=== PATIENT | male | born 1985 | race Caucasian/White ===

== ENCOUNTER 2025-07-03 15:26 | Outpatient (CLI) | payer OTHER, SELFPAY ==
--- NOTE | ~2025-07-03 | XR_ITS ---
XR finger 2nd LT min 2V 07/03/2025 15:40 INDICATION: Left second finger pain PROCEDURE: 4 views left second finger COMPARISON: No prior studies for comparison. FINDINGS: Fracture, dislocation or subluxation is not identified. The soft tissues appear within normal limits. No foreign bodies are identified. IMPRESSION: 1: NO ACUTE BONE OR JOINT ABNORMALITY IDENTIFIED. Reviewed, dictated and finalized at location O. [facility] SCIENT[facility]
--- OUTSIDE RECORDS SUMMARY | 2025-07-03 15:47 | XMS_ITS | Clinical Summary ---
Author Organization [facility] Address [address] [place] [address] Care Team Providers Care Formulation Chemist Name Role Phone Elaina Le MD, Mode Lechuga Primary Care Provide r Allergies No known active allergies Medications cetirizine (ZyrTEC) 10 mg chewable tablet Take 1 tablet (10 mg total) by mouth daily Active fluticasone propionate (FLONASE) 50 mcg/actuation nasal spray Administer 1 spray into each nostril daily Active clobetasoL (TEMOVATE) 0.05 % cream Apply topically 2 (two) times a day Active Active Problems Problem Noted Date Diagnosed Date Preventative health care 08/04/2024 Assessment & Plan (08/04/2024 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): Reviewed labs, screenings and vaccines Gastroesophageal reflux disease 02/24/2022 Vocal cord dysfunction 02/24/2022 Allergic rhinitis due to pollen 11/06/2015 Skin benign neoplasm 03/17/2013 Resolved Problems Problem Noted Date Diagnosed Date Resolved Date Acute meniscal tear of left knee 02/24/2022 08/04/2024 Knee pain 02/24/2022 08/04/2024 Overexertion and strenuous movements 02/24/2022 08/04/2024 Pain in joint of right shoulder 02/21/2022 08/04/2024 Fatigue 02/14/2022 08/04/2024 Influenza 12/09/2021 08/04/2024 COVID-19 10/02/2021 08/04/2024 Bronchial asthma 11/06/2015 08/04/2024 Encounters Date Type Department Care Team Description 06/18/2025 9:48 PM CDT - 06/18/2025 11:23 PM CDT Emergency [facility] Emergency Department [address] [place] [address] Kapil Lewis MD Finger dislocation, initial encounter (Primary Dx) Discharge Disposition: Discharge to home or self care from Last 3 Months Immunizations Immunization Administration Dates Next Due DTP 04/11/1988, 7,1983,1983,1983 Hep B, Adolescent or Pediatric 09/23/2000,1999 Influenza, Unspecified 06/14/2024,06/13/2023 MMR 03/26/1993,08/09/1984 Moderna SARS-CoV-2 Monovalen t Vaccination (12+ YRS) 10/29/2020,10/01/2020 OPV 04/11/1988, 4,1983,1982 Surgical History Surgery Date Site/Laterality Comments KNEE SURGERY Right 2014 Medical History Medical History Date Comments Asthma Seasonal allergies Allergic rhinitis Family History Medical History Relation Name Comments Diabetes Father Alonzo Family history of diabetes mellitus - (Added by TW Conv) Hyperlipidemia Father Alonzo High choleste rol - (Added by TW Conv) Diabetes Mother Rita Family history of diabetes mellitus - (Added by TW Conv) Hyperlipidemia Mother Rita High choleste rol - (Added by TW Conv) Relation Name Status Comments Father Alonzo Mother Rita Social History Tobacco Use Types Packs/Day Years Used Date Smoking Tobacco: Never Cigarettes Smokeless Tobacco: Never Tobacco Cessation:Counseling Given: Not Answered AUDIT-C Answer Date Recorded Q1: How often do you have a drink containing alc ohol? 2-3 times a week 02/15/2024 Q2: How many drinks containi ng alcohol do you have on a typical day when you are drinking? 1 or 2 02/15/2024 Q3: How often do you have si x or more drinks on one occasion? Never 02/15/2024 PHQ-2 Answer Date Recorded PHQ-2 Total Score (If total score is 3 or more points, staff should administer the PHQ-9) 0 08/04/2024 PHQ-9 Answer Date Recorded PHQ-9 Total Score 2 08/04/2024 Personal Safety Answer Date Recorded Have you ever been in or are you currently in a harmful physical or emotional relationship or is someone making you feel afraid or unsafe? 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 Gender Identity Not on file Sexual Orientation Not on file Last Filed Vital Signs Vital Sign Reading Time Taken Comments Blood Pressure 135/91 06/18/2025 10:30 PM CDT Pulse 81 06/18/2025 10:30 PM CDT Temperature 36.8 C (98.2 F) 06/18/2025 8:52 PM CDT Respiratory Rate 18 06/18/2025 10:30 PM CDT Oxygen Saturation 95% 06/18/2025 10:30 PM CDT Inhaled Oxygen Concentration - - Weight 81.6 kg (180 lb) 06/18/2025 8:52 PM CDT Height 185.4 cm (6' 1) 06/18/2025 8:52 PM CDT Body Mass Index 23.75 06/18/2025 8:52 PM CDT Plan of Treatment Health Maintenance Due Date Last Done Comments Hepatitis C Screening 1983 DTaP/Tdap/Td Vaccine (6 - Tdap) 1994 04/11/1988, 01/02/1987, 1983, Additional history exists HPV Vaccines (1 - 3-dose SCDM series) 2010 Covid-19 Vaccine ( season) 2025 10/29/2020, 10/01/2020 Influenza Vaccine (#1) 2025 06/14/2024, 2022 Depression Screening 08/04/2025 08/04/2024 Regular Well Visit/Exam 18-64 08/04/2025 08/04/2024 Hepatitis B Screening Completed 09/23/2000, 000 Pneumococcal vaccine <65 Aged Out No longer eligible based on patient's age to complete this topic Varicella Vaccines Discontinued Procedures Procedure Name Priority Date/Time Associated Diagnosis Comments XR HAND LEFT 3 OR MORE VIEWS ED 06/18/2025 10:19 PM CDT ED ORTHOPEDIC INJURY TREATMENT - UPPER EXTREMITY Routine 06/18/2025 10:02 PM CDT XR HAND LEFT 3 OR MORE VIEWS ED 06/18/2025 9:46 PM CDT from Last 3 Months Results * XR Hand Left 3 or More Views (06/18/2025 10:19 PM CDT) Anatomical Region Laterality Modality Upper Extremities, Hand Left Computed Radiography 06/18/2025 10:2 5 PM CDT Impressions 06/19/2025 7:31 AM CDT Interval reduction and splinting of previously dislocated middle phalanx. No current dislocation is present. No acute fracture or dislocation within the left hand. Dictated by: Eloina Moreno MD, PhD The radiology attending physician has personally reviewed this study, and had reviewed and/or edited this written report and agrees with it. Electronically signed by: Amos Alvarez M.D. Narrative 06/19/2025 7:31 AM CDT EXAMINATION: XR HAND LEFT 3 OR MORE VIEWS HISTORY: 40-year-old status post left second digit dislocation. Procedure Note Amos Alvarez MD - 06/19/2025 EXAMINATION: XR HAND LEFT 3 OR MORE VIEWS HISTORY: 40-year-old status post left second digit dislocation. IMPRESSION: Interval reduction and splinting of previously dislocated middle phalanx. No current dislocation is present. No acute fracture or dislocation within the left hand. Dictated by: Eloina Moreno MD, PhD The radiology attending physician has personally reviewed this study, and had reviewed and/or edited this written report and agrees with it. Electronically signed by: Amos Alvarez M.D. Reym Malhotra MD IM XR PROCEDURES Final Result * Orthopedic Injury Reduction/Treatment - Upper Extremity (06/18/2025 10:02 PM CDT) Narrative Kapil Lewis MD - 06/18/2025 10:02 PM CDT Kapil Lewis MD 06/18/2025 11:22 PM Orthopedic Injury Reduction/Treatment - Upper Extremity Date/Time: 06/18/2025 10:02 PM Performed by: Remy Malhotra MD Authorized by: Kapil Lewis MD RN Notified of Procedure: yes Informed consent: Risks, benefits, alternatives discussed Patient's stated name/ matches armband: Yes Location: Finger Finger location: L index finger Finger dislocation type: PIP Prosthetic: No Pre-procedure imaging: X-ray Imaging findings: dislocation present Imaging findings: no fracture Distal perfusion: normal Sedation used: no Anesthesia method: None Reduction successful: yes Reduction confirmed with imaging: yes Immobilization: Splint Splint type: Static finger Supplies used: Aluminum splint Neurological function: normal Distal perfusion: normal Range of motion: improved Patient tolerance of procedure: Tolerated well, no immediate complications All specimens identified, labeled and matched to patient identification: n/a Responsible republican for transporting specimen(s) to lab determined: n/a us Kapil Lewis MD IN CLINIC/BEDSIDE ORDERA BLES Final Result * XR Hand Left 3 or More Views (06/18/2025 9:46 PM CDT) Anatomical Region Laterality Modality Upper Extremities, Hand Left Computed Radiography 06/18/2025 9:5 4 PM CDT Impressions 06/19/2025 7:31 AM CDT Acute dislocation of the second left middle phalanx. Dictated by: Eloina Moreno MD, PhD The radiology attending physician has personally reviewed this study, and had reviewed and/or edited this written report and agrees with it. Electronically signed by: Amos Alvarez M.D. Narrative 06/19/2025 7:31 AM CDT EXAMINATION: XR HAND LEFT 3 OR MORE VIEWS HISTORY: 30-year-old status post volleyball game, left index finger into another person's hand. FINDINGS: Medial and anterior displacement of the second middle phalanx with respect to the second proximal phalanx. Soft tissue swelling is present. No acute fracture within the left hand. Procedure Note Amos Alvarez MD - 06/19/2025 EXAMINATION: XR HAND LEFT 3 OR MORE VIEWS HISTORY: 30-year-old status post volleyball game, left index finger into another person's hand. FINDINGS: Medial and anterior displacement of the second middle phalanx with respect to the second proximal phalanx. Soft tissue swelling is present. No acute fracture within the left hand. IMPRESSION: Acute dislocation of the second left middle phalanx. Dictated by: Eloina Moreno MD, PhD The radiology attending physician has personally reviewed this study, and had reviewed and/or edited this written report and agrees with it. Electronically signed by: Amos Alvarez M.D. Kapil Lewis MD IMG XR PROCEDURES Final Result from Last 3 Months Insurance [employer] OPEN ACCESS [employer] OPEN ACCESS Care Teams Formulation Chemist Relationship Specialty Start Date End Date Mode Delaney Jr., MD [address] [place] [id number] PCP - General Internal Medicine 08/04/24
--- OUTSIDE RECORDS SUMMARY | 2025-07-03 15:47 | XMS_ITS | Clinical Summary ---
Author Organization [facility] Address [address] [place] [address] Care Team Providers Care Storage Facility Rental Clerk Name Role Phone Unavailable Primary Care Provider Unavailabl e Source Comments [facility],non-owned Affiliates and Associated Physician Practices is amultiple site organization consisting of ambulatory clinics and hospital sitesin [place], [place], [place] and [place]. This disclosure is being madepursuant to the Care Everywhere program and may not contain all information available regarding this patient. 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 Gender Identity Not on file Sexual Orientation Not on file Plan of Treatment Health Maintenance Due Date Last Done Comments LIPID TESTING 1983 HIV SCREENING 1998 HEPATITIS C SCREENING 03/30/2001 DTAP/TDAP/TD VACCINES (1 - Tdap) 2002 HEPATITIS B VACCINE (1 of 3 - 19+ 3-dose series) 2002 HPV VACCINE (1 - 3-dose SCDM series) 2010 DEPRESSION SCREENING 08/31/2024 COVID-19 VACCINE (1 - 2023-2 5 season) 2025 INFLUENZA VACCINE (#1) 2025 ZOSTER VACCINE (1 of 2) 2033 HIB VACCINE Aged Out No longer eligi ble based on patient's age to complete this topic MENINGOCOCCAL (Group B) VACC INE SHARED DECISION-MAKING Aged Out No longer eligibl e based on patient's age to complete this topic MENINGOCOCCAL GROUPS A/C/Y/W VACCINE Aged Out No longer eligible b ased on patient's age to complete this topic PNEUMOCOCCAL VACCINE Aged Out No long er eligible based on patient's age to complete this topic
== END 2025-07-03 15:27 | disposition home or self-care (01) ==
PROVIDERS: PCP Internal Medicine; Visit Provider Plastic Surgery
DX: S63.651A Sprain of metacarpophalangeal joint of left index finger, initial encounter (principal); X58.XXXA Exposure to other specified factors, initial encounter
CPT/HCPCS: 73140